=== PATIENT | female | born 1975 | race Caucasian/White ===

== ENCOUNTER 2018-01-09 16:57 | Inpatient (IN) | payer SELFPAY ==
[~2018-01-09] VITALS: Ht 160 cm; Wt 124.0 kg
[2018-01-09 18:56] LABS: Basophils # (auto) 0.1 uL; Basophils % (auto) 0.4 % (0.0-2.0); Eosinophils # (auto) 0.5 uL; Eosinophils % (auto) 2.5 % (0.0-7.0); Hematocrit 50.9 % (36.0-46.0); Lymphocytes # (auto) 2.5 uL; Lymphocytes % (auto) 13.3 % (10.0-50.0); Mean Corpuscular Hemoglobin 30.7 pg (28.0-32.0); Mean Corpuscular Hgb Conc. 33.5 g/dL (32.0-36.0); Mean Corpuscular Volume 91.7 fL (80.0-100.0); Monocytes # (auto) 1.1 uL; Neutrophils # (auto) 14.3 uL; Neutrophils % (auto) 77.8 % (37.0-80.0); Platelet Count (auto) 332 10^3/uL (140-450); Red Blood Cells 5.55 10^6/uL (4.0-5.20); White Blood Cell 18.5 10^3/uL (4.4-10.8)
[2018-01-09 19:12] LABS: Albumin 3.9 g/dL (3.4-5.0); BUN/Creatinine Ratio 9.1; Calcium 9.4 mg/dL (8.5-10.1); Potassium 4.6 mmol/L (3.5-5.1)
[2018-01-09 19:15] LABS: Bilirubin, Total 0.4 mg/dL (0.2-1.0); Total Protein 8.5 g/dL (6.4-8.2)
[2018-01-09 20:43] LABS: Urine Bacteria FEW /hpf (None Seen); Urine Blood Negative /uL (Negative); Urine Hyaline Cast FEW /lpf (0 - 2); Urine Mucus FEW (None Seen); Urine Specific Gravity 1.035 (1.001-1.035); Urine WBC 7 /hpf (0 - 5)
[2018-01-09 21:08] LABS: Amphetamine Screen, Urine NEGATIVE (NEGATIVE); Barbiturate Scree,Urine NEGATIVE (NEGATIVE); Benzodiazephine Screen, Urine NEGATIVE (NEGATIVE); Cannabinoid Screen, Urine POSITIVE (NEGATIVE); Cocaine Screen, Urine NEGATIVE (NEGATIVE); Opiate Scree,Urine NEGATIVE (NEGATIVE); Phencyclidine Screen, Urine NEGATIVE (NEGATIVE)
[2018-01-10 00:54] LABS: Amylase 46 U/L (25-115); Lipase 99 U/L (73-393)
[2018-01-10] MEDS ORDERED: cefTRIAXone 1GM/10ml IVPUSH 10 ML IV ONE (02:15)
[2018-01-10] MEDS ORDERED: metroNIDAZOLE 500MG/100ML 100 ML IV ONE (02:15)
[2018-01-10] MEDS ORDERED: SODIUM CHLORIDE 0.9% 1,000 ML IV ONE ×2 (02:15→07:15)
[2018-01-10] MEDS ORDERED: ONDANSETRON HCL 4 MG/2 ML VIAL IV ONE (02:30)
[2018-01-10] MEDS ORDERED: ONDANSETRON HCL 4 MG/2 ML VIAL ONE (02:33)
[2018-01-10] MEDS ORDERED: SODIUM CHLORIDE 0.9% 250 ML IV ONE (07:00)
[2018-01-10] MEDS ORDERED: MORPHINE SULFATE 8mg/ml INJ SDV IV PRN (07:30)
[2018-01-10] MEDS ORDERED: ACETAMINOPHEN 500 MG TAB PO PRN (07:30)
[2018-01-10] MEDS ORDERED: HYDROcodone-ACET 5/325MG TAB PO PRN (07:30)
[2018-01-10 08:49] LABS: Basophils # (auto) 0.1 uL; Basophils % (auto) 0.5 % (0.0-2.0); Eosinophils # (auto) 0.5 uL; Eosinophils % (auto) 2.8 % (0.0-7.0); Hematocrit 44.7 % (36.0-46.0); Hemoglobin 15.2 g/dL (12.2-16.2); Lymphocytes # (auto) 2.6 uL; Mean Corpuscular Hemoglobin 30.7 pg (28.0-32.0); Mean Corpuscular Hgb Conc. 33.9 g/dL (32.0-36.0); Mean Corpuscular Volume 90.6 fL (80.0-100.0); Monocytes % (auto) 5.8 % (0.0-12.0); Neutrophils % (auto) 75.9 % (37.0-80.0); Platelet Count (auto) 271 10^3/uL (140-450); Red Blood Cells 4.94 10^6/uL (4.0-5.20); Red Cell Distribution Width 13.8 % (11.8-14.3)
[2018-01-10] MEDS ORDERED: DILTIAZEM 125mg/125ml BAG KIT 100 ML IV SCH (09:30)
[2018-01-10] MEDS ORDERED: DILTIAZEM HCL 25 MG/5 ML VIAL IV ONE (09:30)
[2018-01-10] MEDS: cefTRIAXone 1GM/10ml IVPUSH 10 ML IV SCH (09:45)
[2018-01-10 12:00] VITALS: BP 132/86
[2018-01-10 14:00] VITALS: BP 132/84
[2018-01-10] MEDS: metroNIDAZOLE 500MG/100ML 100 ML IV SCH ×2 (14:00→22:11)
[2018-01-10] MEDS: SODIUM CHLORIDE 0.9% 1,000 ML IV SCH (15:30)
[2018-01-10 18:15] VITALS: BP 115/59
[2018-01-10 22:00] VITALS: BP 114/57
[2018-01-10] MEDS: ONDANSETRON HCL 4 MG/2 ML VIAL IV PRN (22:12)
[2018-01-11] MEDS: SODIUM CHLORIDE 0.9% 1,000 ML IV SCH ×2 (04:50→12:44)
[2018-01-11 05:02] VITALS: BP 117/80
[2018-01-11] MEDS: metroNIDAZOLE 500MG/100ML 100 ML IV SCH ×3 (06:25→22:29)
[2018-01-11] MEDS: ONDANSETRON HCL 4 MG/2 ML VIAL IV PRN ×2 (06:26→22:29)
[2018-01-11 07:02] LABS: Basophils # (auto) 0.1 uL; Basophils % (auto) 0.4 % (0.0-2.0); Eosinophils # (auto) 0.5 uL; Eosinophils % (auto) 4.1 % (0.0-7.0); Hematocrit 43.3 % (36.0-46.0); Hemoglobin 14.4 g/dL (12.2-16.2); Lymphocytes # (auto) 3.3 uL; Lymphocytes % (auto) 27.9 % (10.0-50.0); Mean Corpuscular Hemoglobin 30.5 pg (28.0-32.0); Mean Corpuscular Hgb Conc. 33.4 g/dL (32.0-36.0); Mean Corpuscular Volume 91.5 fL (80.0-100.0); Monocytes # (auto) 0.8 uL; Neutrophils # (auto) 7.2 uL; Neutrophils % (auto) 60.6 % (37.0-80.0); Platelet Count (auto) 266 10^3/uL (140-450); Red Blood Cells 4.73 10^6/uL (4.0-5.20); Red Cell Distribution Width 13.5 % (11.8-14.3); White Blood Cell 11.9 10^3/uL (4.4-10.8)
[2018-01-11 07:19] LABS: Calcium 8.5 mg/dL (8.5-10.1); Magnesium 1.8 mg/dL (1.6-2.6); Potassium 3.8 mmol/L (3.5-5.1)
[2018-01-11 07:22] LABS: BUN/Creatinine Ratio 8.8
[2018-01-11 08:00] VITALS: BP 143/77
[2018-01-11 09:00] VITALS: BP 143/77
[2018-01-11] MEDS: cefTRIAXone 1GM/10ml IVPUSH 10 ML IV SCH (10:22)
[2018-01-11] MEDS ORDERED: MAGNESIUM SULFATE 1GM/100ML 100 ML IV ONE (11:45)
[2018-01-11 13:00] VITALS: BP 120/69
[2018-01-11 17:00] VITALS: BP 104/62
[2018-01-11 22:00] VITALS: BP 112/65
[2018-01-12] MEDS: SODIUM CHLORIDE 0.9% 1,000 ML IV SCH (04:25)
[2018-01-12 05:00] VITALS: BP 103/72
[2018-01-12] MEDS: metroNIDAZOLE 500MG/100ML 100 ML IV SCH (06:53)
[2018-01-12 07:06] LABS: Basophils # (auto) 0.1 uL; Basophils % (auto) 0.6 % (0.0-2.0); Eosinophils # (auto) 0.5 uL; Hematocrit 43.2 % (36.0-46.0); Hemoglobin 14.4 g/dL (12.2-16.2); Lymphocytes # (auto) 3.9 uL; Lymphocytes % (auto) 30.8 % (10.0-50.0); Mean Corpuscular Hemoglobin 30.5 pg (28.0-32.0); Mean Corpuscular Hgb Conc. 33.3 g/dL (32.0-36.0); Mean Corpuscular Volume 91.8 fL (80.0-100.0); Monocytes # (auto) 0.8 uL; Monocytes % (auto) 6.7 % (0.0-12.0); Neutrophils # (auto) 7.3 uL; Neutrophils % (auto) 57.9 % (37.0-80.0); Platelet Count (auto) 278 10^3/uL (140-450); Red Blood Cells 4.71 10^6/uL (4.0-5.20); Red Cell Distribution Width 13.2 % (11.8-14.3); White Blood Cell 12.6 10^3/uL (4.4-10.8)
[2018-01-12] MEDS: cefTRIAXone 1GM/10ml IVPUSH 10 ML IV SCH (08:54)
[2018-01-12 09:00] VITALS: BP 107/67
[2018-01-12 12:15] VITALS: BP 127/66
[2018-01-12 12:26] VITALS: BP 127/66
== END 2018-01-12 13:45 | disposition home or self-care (01) | DRG 392 ==
LOC: ER 16:57 → OVERFLOW 16:58 → EAST 01-10 11:09
PROVIDERS: ADMIT Nurse Practitioner Family; ATTEND Internal Medicine
DX: A08.4 Viral intestinal infection, unspecified (principal); E66.01 Morbid (severe) obesity due to excess calories; N39.0 Urinary tract infection, site not specified; Z68.42 Body mass index [BMI] 45.0-49.9, adult; F17.210 Nicotine dependence, cigarettes, uncomplicated
CPT/HCPCS: 36415; 74176; 80048; 80053; 80307; 81001; 81025; 82150; 83690; 83735; 85025; 85048; 86677; 87045; 87086; 87493; 87899; 96361; 96365; 96375; J2405; J3490

== ENCOUNTER 2019-06-27 14:56 | Emergency (ER) | payer MEDICAID, OTHER ==
[~2019-06-27] VITALS: Ht 165.1 cm; Wt 119.8 kg
[2019-06-27 15:51] LABS: Albumin 3.1 g/dL (3.4-5.0); Calcium 8.9 mg/dL (8.5-10.1); Potassium 4.4 mmol/L (3.5-5.1)
[2019-06-27 15:54] LABS: BUN/Creatinine Ratio 12.5; Bilirubin, Total 0.2 mg/dL (0.2-1.0)
[2019-06-27 16:34] LABS: Basophils # (auto) 0.1 uL; Basophils % (auto) 0.9 % (0.0-2.0); Eosinophils # (auto) 0.3 uL; Eosinophils % (auto) 2.8 % (0.0-7.0); Hematocrit 45.1 % (36.0-46.0); Hemoglobin 14.9 g/dL (12.2-16.2); Lymphocytes # (auto) 2.7 uL; Lymphocytes % (auto) 24.1 % (10.0-50.0); Mean Corpuscular Hemoglobin 30.3 pg (28.0-32.0); Mean Corpuscular Volume 91.7 fL (80.0-100.0); Monocytes # (auto) 0.6 uL; Monocytes % (auto) 5.8 % (0.0-12.0); Neutrophils # (auto) 7.4 uL; Neutrophils % (auto) 66.4 % (37.0-80.0); Platelet Count (auto) 340 10^3/uL (140-450); Red Blood Cells 4.92 10^6/uL (4.0-5.20); Red Cell Distribution Width 13.8 % (11.8-14.3); White Blood Cell 11.1 10^3/uL (4.4-10.8)
[2019-06-27 18:40] VITALS: BP 126/70
== END 2019-06-27 18:45 | disposition home or self-care (01) ==
LOC: ER 14:58
DX: N88.8 Other specified noninflammatory disorders of cervix uteri (principal); N93.9 Abnormal uterine and vaginal bleeding, unspecified; F17.210 Nicotine dependence, cigarettes, uncomplicated
CPT/HCPCS: 36415; 76856; 80053; 84702; 85025